=== PATIENT | male | born 1980 | race Caucasian/White ===

== ENCOUNTER 2020-07-05 15:54 | Emergency (ER) | payer SELFPAY ==
[2020-07-05] MEDS ORDERED: Fentanyl 100 MCG/2 ML VIAL ONE (16:18)
[2020-07-05] MEDS ORDERED: cefTRIAXone\\ROCEPHIN 2 GM VIAL ONE (16:18)
[2020-07-05] MEDS ORDERED: Ketorolac Tromethamine 30 MG/ML VIAL ONE (16:18)
[2020-07-05 16:42] LABS: Hemoglobin 15.9 g/dL (14.0-18.0); Mean Corpuscular HGB CONC 33.8 g/dL (32.0-36.0); Mean Corpuscular Hemoglobin 28.8 pg (27.0-31.0); Mean Corpuscular Volume 85.4 fL (78.0-98.0); Platelet Count 177 thou/uL (130-400); Red Blood Cell (RBC) Count 5.53 mill/uL (4.70-6.10); White Blood Cell (WBC) Count 10.7 thou/uL (4.8-10.8)
[2020-07-05 16:43] LABS: #Eosinphils 0.2 thou/uL (0.0-0.7); #Monocytes 0.4 thou/uL (0.11-0.59); #Neutrophils 7.9 thou/uL (1.40-6.50); %Basophils 0.8 % (0.0-1.0); %Eosinophils 2.2 % (0.0-10.0); %Lymphocytes 19.8 % (21.0-51.0); %Monocytes 3.4 % (0.0-10.0); %Neutrophils 73.8 % (42.0-75.0); Manual Diff?? YES; Mean Platelet Volume 9.2 fL (7.4-10.4)
[2020-07-05 16:44] LABS: #Basophils 0.1 thou/uL (0.0-0.2); MDiff Complete? YES
[2020-07-05 17:01] LABS: ALT (SGPT) 24 U/L (8-55); AST (SGOT) 14 U/L (5-34); Albumin 4.2 g/dL (3.5-5.0); Alkaline Phosphatase 77 U/L (40-110); Anion Gap 16 mmol/L (10-20); BUN (Urea Nitrogen) 7 mg/dL (8.9-20.6); Bilirubin, Total 0.5 mg/dL (0.2-1.2); Calc. Creatinine Clearance 0 mL/min (70-130); Calcium 9.6 mg/dL (7.8-10.44); Carbon Dioxide 24 mmol/L (22-29); Chloride 107 mmol/L (98-107); Globulin 2.7 g/dL (2.4-3.5); Glucose 125 mg/dL (70-105); Potassium 3.5 mmol/L (3.5-5.1); Protein, Total 6.9 g/dL (6.0-8.3); Sodium 143 mmol/L (136-145)
[2020-07-05 17:32] LABS: #Lymphocytes 2.1 thou/uL (1.20-3.40)
== END 2020-07-05 17:24 | disposition home or self-care (01) ==
LOC: BURERS 15:54
DX: K04.7 Periapical abscess without sinus (principal); J01.90 Acute sinusitis, unspecified; F17.210 Nicotine dependence, cigarettes, uncomplicated
CPT/HCPCS: 36415; 70487; 80053; 83605; 85025; 87040; 96374; 96375; J0696; J1885; J3010

== ENCOUNTER 2021-05-23 18:00 | Emergency (ER) | payer SELFPAY ==
[2021-05-23] MEDS ORDERED: Ondansetron ODT 4 MG TAB ONE (18:58)
[2021-05-24 11:34] LABS: SARS-CoV-2 PCR by NAA DETECTED (NotDetected)
== END 2021-05-23 19:40 | disposition home or self-care (01) ==
LOC: BURERS 18:00
DX: U07.1 COVID-19 (principal); K04.7 Periapical abscess without sinus; K02.9 Dental caries, unspecified; F17.210 Nicotine dependence, cigarettes, uncomplicated
CPT/HCPCS: 99284; Q0162; U0003; U0005